=== PATIENT | female | born 1990 | race Caucasian/White ===

== ENCOUNTER → 2021-02-12 | Outpatient (REF) | payer OTHER | LOC: M SFHCWAGY 18:05 | PROVIDERS: ATTEND Advanced Practice Midwife | DX: Z34.83 Encounter for supervision of other normal pregnancy, third trimester (principal) ==

== ENCOUNTER 2021-03-03 21:10 | Inpatient (IN) | payer OTHER ==
[~2021-03-03] VITALS: Ht 165.1 cm; Wt 100.5 kg
[2021-03-03 21:32] VITALS: BP 136/85
[2021-03-03] MEDS ORDERED: LR 1,000 ML IV ONE (21:45)
[2021-03-03 22:14] LABS: HEMATOCRIT 42.6 % (36.0-47.0); HEMOGLOBIN 15.2 g/dl (12.0-15.5); MEAN CORPUSCULAR HEMOGLOBIN 30.9 pg (27.0-33.0); MEAN CORPUSCULAR HGB CONC 35.7 g/dl (32.0-36.5); MEAN CORPUSCULAR VOLUME 86.6 fl (80.0-96.0); PLATELET COUNT, AUTOMATED 239 10^3/uL (150-450); RED BLOOD COUNT 4.92 10^6/uL (4.00-5.40); WHITE BLOOD COUNT 12.4 10^3/uL (4.0-10.0)
[2021-03-03 22:43] VITALS: BP 143/87
[2021-03-03] MEDS ORDERED: ceFAZolin 2 GM/D5W 50 ML IV BAG (J0690 PER 500MG) As Ordered ONE (22:59)
[2021-03-03] MEDS ORDERED: ceFAZolin SOD 2 GM in IV 1 EA IV ONE (23:00)
[2021-03-03] MEDS ORDERED: BICITRA 30ML SOLN UDC PO ONE (23:00)
[2021-03-03] MEDS ORDERED: BICITRA 30ML SOLN UDC As Ordered ONE (23:03)
[2021-03-03] MEDS ORDERED: diphenhydrAMINE 50MG/ML VIAL (J1200) IV PRN (23:16)
[2021-03-03] MEDS ORDERED: NALOXONE INJ 0.4MG/1ML VIAL (J2310 PER 1MG) IV PRN ×2 (23:16)
[2021-03-03] MEDS ORDERED: METOCLOPRAMIDE INJ 10MG/2ML VIAL (J2765 PER 1) IV PRN (23:16)
[2021-03-03] MEDS ORDERED: NALBUPHINE HCL 10 MG/ML AMP (J2300) IV PRN (23:16)
[2021-03-03] MEDS ORDERED: ONDANSETRON 4MG/2ML VIAL IV PRN (23:16)
[2021-03-03] MEDS ORDERED: OXYTOCIN 30 UNITS IN 0.9% NaCl 500ML IV BAG (J2590) As Ordered ONE (23:47)
[2021-03-03] MEDS ORDERED: PHENYLephrine 500MCG 5ML (100MCG/ML) SYRINGE As Ordered ONE (23:57)
[2021-03-03] MEDS ORDERED: OXYTOCIN INJ 10 UNITS/ML VIAL (J2590) As Ordered ONE (23:57)
[2021-03-03] MEDS ORDERED: MORPHINE PRES-FREE INJ 10 MG/10 ML VIAL (J2274) As Ordered ONE (23:57)
[2021-03-03] MEDS ORDERED: ONDANSETRON 4MG/2ML VIAL As Ordered ONE (23:57)
[2021-03-03] MEDS ORDERED: METOCLOPRAMIDE INJ 10MG/2ML VIAL (J2765 PER 1) As Ordered ONE (23:57)
[2021-03-03] MEDS ORDERED: dexameTHASONE 4 MG/ML 1ML VIAL (J1100 PER 1MG) As Ordered ONE (23:57)
[2021-03-03] MEDS ORDERED: ACETAMINOPHEN 1000MG 100ML IV BTL (OFIRMEV) (J0131 PER 10MG) As Ordered ONE (23:58)
[2021-03-04] VITALS (20 sets, daily range): BP systolic 116–166; BP diastolic 61–98
[2021-03-04] MEDS ORDERED: diphenhydrAMINE 50MG/ML VIAL (J1200) IV PRN
[2021-03-04] MEDS ORDERED: KETOROLAC 30 MG/ML 1ML VIAL IV PRN
[2021-03-04] MEDS ORDERED: oxyCODONE 5MG TAB PO PRN
[2021-03-04] MEDS ORDERED: MEPERIDINE INJ 25 MG/ML VIAL (J2175) IV PRN
[2021-03-04] MEDS ORDERED: fentaNYL 100 MCG/2 ML INJECTION (J3010) IV PRN
[2021-03-04] MEDS ORDERED: HYDROMORPHONE HCL 0.5 MG/ 0.5 ML SYRINGE (J1170 PER 1) IV PRN
[2021-03-04] MEDS ORDERED: NALBUPHINE HCL 10 MG/ML AMP (J2300) IV PRN
[2021-03-04] MEDS ORDERED: ONDANSETRON 4MG/2ML VIAL IV PRN
[2021-03-04] MEDS ORDERED: OXYTOCIN DRIP 30 UNITS in IV 1 EA IV SCH ×2 (00:35→00:40)
[2021-03-04] MEDS ORDERED: SIMETHICONE 80MG CHEW TAB PO PRN (00:40)
[2021-03-04] MEDS ORDERED: RHOGAM 300 MCG (1500 IU) INJ (J2790) IM SCH (00:40)
[2021-03-04] MEDS ORDERED: MEASLES,MUMPS,RUBELLA VACCINE INJ (MMR-II) (90707) SC SCH (00:40)
[2021-03-04] MEDS ORDERED: MOM 30ML SUSPENSION UDC PO PRN (00:40)
[2021-03-04 01:00] LABS: CORD GAS ABE A -7.2; CORD GAS ABE V -6.6; CORD GAS HCO3 A 20.9 MEQ/L; CORD GAS O2 SAT A 45.5 %; CORD GAS O2 SAT V 50.6 %; CORD GAS PCO2 A 51.6 mmHg; CORD GAS PCO2 V 62.8 mmHg; CORD GAS PH A 7.226 UNITS; CORD GAS PH V 7.181 UNITS; CORD GAS PO2 A 23.9 mmHg; CORD GAS PO2 V 27.2 mmHg; CORD GAS SBC A 17.5 MEQ/L; CORD GAS SBC V 18.1 MEQ/L; CORD GAS TCO2 A 22.5 MEQ/L; CORD GAS TCO2 V 24.9 MEQ/L
[2021-03-04] MEDS: PERCOCET 5MG/325MG TAB PO PRN ×2 (03:17→15:13)
[2021-03-04] MEDS ORDERED: LR 300 ML IV ONE (04:35)
--- NOTE | 2021-03-04 08:35 | RO ---
OPERATIVE NOTE DATE OF OPERATION: 03/03/2021 Vida is a 30-year-old female, 2, para 0-0-1-0, who was admitted at 39 and 4/7 weeks gestation in active labor with a breech presentation. After counseling, a decision was made to proceed with delivery via primary section. PREOPERATIVE DIAGNOSIS: 1. Term in active labor. 2. Breech presentation. POSTOPERATIVE DIAGNOSIS: 1. Term in active labor. 2. Breech presentation. 3. Tight nuchal cord. PROCEDURE: Primary low transverse section via Pfannenstiel incision. Breech extraction. SURGEON: Charles Lopez DO THROUGH OPERATOR: ANESTHESIA: Spinal COMPLICATIONS: None. ESTIMATED BLOOD LOSS: 600 mL FINDINGS: A live female in double footling breech presentation with a tight nuchal cord. The nuchal cord had to be reduced for the head to be delivered. Normal appearing tube, ovaries and placenta. SPECIMEN SENT TO THE LAB: Placenta. DESCRIPTION OF PROCEDURE: After obtaining informed consent, the patient was taken to the operating room where a spinal anesthetic was found to be adequate. She was then draped and prepped in the usual sterile fashion in supine position. At this point, a Pfannenstiel incision was made. This was carried down to the fascia. The fascia was incised in a midline fashion and carried through laterally. The superior aspect of the fascia was then grasped with a Tasha clamp, tented off and dissected off the rectus muscles sharply. The inferior aspect was dissected off in a similar fashion. The rectus muscles were in midline fashion. The peritoneum was identified. The peritoneal cavity was entered bluntly. Superior and inferior dissection of the peritoneum was then done with good visualization of the bladder. At this point, a Mobius skin retractor was placed. A low transverse uterine incision was made. Double footling breech was found. The was delivered after the nuchal cord was clamped and cut via breech extraction. The was then handed to the awaiting warmer. Cord blood and cord gas were sent. The placenta was removed manually. The uterus was cleared of all clot and debris and the uterine incision was then repaired in two separate layers of 0 Vicryl suture. The pelvis was copiously irrigated with normal saline and suctioned out. Attention was turned to the peritoneum which was closed in a running fashion using 2-0 Vicryl. The fascia was closed in two separate segments of 0 Vicryl sutures and the skin was reapproximated in a subcuticular fashion using 3-0 Vicryl on a Harman. Steri-Strips were placed. The patient tolerated the procedure well. She was then transferred to recovery room in stable condition. [facility]
[2021-03-04] MEDS: PRENATAL VITAMINS CHEWABLE TABLET PO SCH (09:13)
[2021-03-04] MEDS: IBUPROFEN 800 MG TAB PO SCH ×2 (09:14→16:19)
--- NOTE | 2021-03-04 09:16 | HPE ---
HISTORY AND PHYSICAL DATE OF ADMISSION: 03/03/2021 HISTORY OF PRESENT ILLNESS: Vida is a 30-year-old female, 2, para 0-0-1-0, with an EDC of 03/13/2021, EGA 38 and 4/7 weeks gestation who presented to labor and delivery with complaints of contractions every 3-4 minutes. Upon evaluation in labor and delivery, she was found to be in active labor in breech presentation. She is 100% effaced with a mid-bulging bag approximately 8 cm dilated. Breech confirmed by bedside ultrasound. Her history reviewed. She was also found to be breech two weeks earlier during her visit. Her labs are unremarkable. Blood type is B positive, rubella immune, hepatitis negative, HIV negative, GC, Chlamydia negative. One hour sugar testing was within normal limits. Her GBS was negative. PAST MEDICAL HISTORY: Denies. PAST SURGICAL HISTORY: She had a D&C for molar in 2019 and she also has benign rib cage tumor removed. SOCIAL HISTORY: Denies any alcohol or drug use. REVIEW OF SYSTEMS: Unremarkable. MEDICATIONS: vitamin. ALLERGIES: No known drug allergies. PHYSICAL EXAMINATION: On admission, obese female in no acute distress. Abdomen: Soft, nontender, nondistended. Extremities: No clubbing, cyanosis or edema. Vaginal exam: Her cervix is 8 cm dilated, 100% effaced with bulging membrane with double footling breech presentation confirmed by ultrasound. heart rate tracing 140-150s, reactive. Contractions every 2-3 minutes. ASSESSMENT: 1. Intrauterine at 38 and 4/7 weeks gestation in active labor. 2. Breech presentation. PLAN: Admit to labor and delivery, routine labs sent. Given her active labor and breech presentation, a decision was made to proceed with emergent section. Informed consent obtained, OR notified. We will proceed with a section. [facility]
[2021-03-04] MEDS: DOCUSATE SODIUM 100MG CAPSULE PO SCH (20:01)
[2021-03-05] MEDS: IBUPROFEN 800 MG TAB PO SCH ×2 (00:22→08:06)
[2021-03-05 02:00] VITALS: BP 143/63
[2021-03-05 06:00] VITALS: BP 142/86
[2021-03-05 07:39] LABS: MEAN CORPUSCULAR HEMOGLOBIN 31.1 pg (27.0-33.0); MEAN CORPUSCULAR HGB CONC 34.7 g/dl (32.0-36.5); MEAN CORPUSCULAR VOLUME 89.6 fl (80.0-96.0); PLATELET COUNT, AUTOMATED 185 10^3/uL (150-450); RED BLOOD COUNT 4.02 10^6/uL (4.00-5.40); WHITE BLOOD COUNT 11.8 10^3/uL (4.0-10.0)
[2021-03-05 07:51] LABS: HEMOGLOBIN 12.5 g/dl (12.0-15.5)
[2021-03-05] MEDS: PRENATAL VITAMINS CHEWABLE TABLET PO SCH (08:06)
[2021-03-05] MEDS: DOCUSATE SODIUM 100MG CAPSULE PO SCH (08:07)
[2021-03-05] MEDS: PERCOCET 5MG/325MG TAB PO PRN (08:08)
[2021-03-05] MEDS ORDERED: PERCOCET PO (10:59)
[2021-03-05] MEDS ORDERED: COLA100C5 PO (10:59)
[2021-03-05] MEDS ORDERED: IBUP80TA PO (10:59)
--- NOTE | 2021-03-05 11:10 | DS.PDOC ---
Discharge Summary General Date of Admission Mar 03, 2021 at 22:55 Date of Discharge 03/05/21 Attending Physician: Charles Lopez DO Discharge Summary PROCEDURES PERFORMED DURING STAY: Primary section. ADMITTING DIAGNOSES: 1. Active labor. 2. Breech presentation DISCHARGE DIAGNOSES: 1. Day 2 postoperative. COMPLICATIONS/CHIEF COMPLAINT: Labor Check. HISTORY OF PRESENT ILLNESS: Vida is a 30-year-old female who is a who presented to labor and delivery in active labor and breech presentation at 38.4 weeks gestation. She had a section. She has been and meeting with the natural remedy consultant. She has been voiding, ambulating and eating a regular diet without any issues. DISCHARGE MEDICATIONS: Please see below. ALLERGIES: Please see below. PHYSICAL EXAMINATION ON DISCHARGE: VITAL SIGNS: Please see below. GENERAL: Patient is awake and alert. Sitting up in bed nursing . RESPIRATORY EXAMINATION: regular rate without use of accessory muscles. ABDOMINAL EXAMINATION: fundus at umbilicus. Incision is approximated with steri- strips present. No drainage or erythema noted. EXTREMITIES: 1+ plus pitting edema on feet bilaterally with generalized edema of legs. SKIN: warm and dry without any lesions or rashes. LABORATORY DATA: Please see below. ACTIVITY: As tolerated. Pelvic rest. No heavy lifting. DIET: regular DISCHARGE INSTRUCTIONS: 1. Discharged to home. Follow-up in the office in 2 weeks for incision check and 6-8 weeks for . 2. Reviewed pain management, pelvic rest, DVT precautions, hemorrhage signs, depression, mastitis, care of incision and signs of infection. DISCHARGE CONDITION: Stable. Vital Signs/I&Os Vital Signs Date Time Temp Pulse Resp B/P (MAP) Pulse Ox O2 Delivery O2 Flow Rate FiO2 03/05/21 08:38 18 03/05/21 08:08 Room Air 03/05/21 06:00 98.3 106 142/86 (104) 98 I&O- Last 24 Hours up to 6 AM 03/05/21 06:00 Output Total 1300 ml Balance -1300 ml Laboratory Data Labs 24H Laboratory Tests 2 03/05/21 06:33: Nucleated Red Blood Cells % (auto) 0.0 CBC/BMP Laboratory Tests 03/05/21 06:33 Discharge Medications Scheduled PRN Docusate Sodium (Colace) 100 Mg Capsule, 100 MG PO BIDP PRN for CONSTIPATION Ibuprofen (Ibuprofen) 800 Mg Tablet, 800 MG PO Q8HP PRN for PAIN LEVEL 1-6 Oxycodone/Acetaminophen (Oxycodone-Acetaminophen 5-325) 1 Each Tablet, 1 TAB PO Q6HP PRN for PAIN LEVEL 7-10 Allergies Coded Allergies: No Known Allergies (Unverified , 03/03/21) WINNIE TONEY CNM Mar 05, 2021 11:10
== END 2021-03-05 13:35 | disposition home or self-care (01) | DRG 788 ==
LOC: M LDO 21:10 → M LDI 22:55 → M OBS 03-04 01:27
PROVIDERS: ADMIT Obstetrics & Gynecology; ATTEND Obstetrics & Gynecology
PROC: 10D00Z1 Extraction of Products of Conception, Low, Open Approach (ICD-10-PCS; principal; 2021-03-03 23:02)
DX: O32.8XX0 Maternal care for other malpresentation of fetus, not applicable or unspecified (principal); Z3A.38 38 weeks gestation of pregnancy; Z37.0 Single live birth

== ENCOUNTER → 2021-06-28 | Outpatient (REF) | payer OTHER ==
[~2021-06-28] MED LIST: COLA100C5 PO; IBUP80TA PO; PERCOCET PO
== END ==
LOC: M SFHCWAGY 17:01
PROVIDERS: ATTEND Obstetrics & Gynecology
DX: Z01.419 Encounter for gynecological examination (general) (routine) without abnormal findings (principal)

== ENCOUNTER → 2022-08-05 | Outpatient (CLI) | payer OTHER ==
[2022-08-05 19:22] LABS: HEMATOCRIT 43.8 % (36.0-47.0); HEMOGLOBIN 15.2 g/dl (12.0-15.5); MEAN CORPUSCULAR HEMOGLOBIN 30.2 pg (27.0-33.0); MEAN CORPUSCULAR HGB CONC 34.7 g/dl (32.0-36.5); MEAN CORPUSCULAR VOLUME 86.9 fl (80.0-96.0); PLATELET COUNT, AUTOMATED 270 10^3/uL (150-450); RED BLOOD COUNT 5.04 10^6/uL (4.00-5.40); WHITE BLOOD COUNT 8.2 10^3/uL (4.0-10.0)
[2022-08-05 20:22] LABS: HIV 1&2 SCREEN ATELLICA NEGATIVE (NEGATIVE)
[2022-08-05 22:32] LABS: GC DNA AMPLIFICATION NEGATIVE (NEGATIVE)
== END ==
LOC: M PLALAB 15:12
PROVIDERS: ATTEND Advanced Practice Midwife
DX: Z36.9 Encounter for antenatal screening, unspecified (principal)

== ENCOUNTER 2023-03-06 19:05 | Inpatient (IN) | payer OTHER ==
[~2023-03-06] VITALS: Ht 165.1 cm; Wt 95.6 kg
[2023-03-06 19:19] VITALS: BP 143/67
[2023-03-06 20:40] LABS: HEMATOCRIT 41.2 % (36.0-47.0); HEMOGLOBIN 14.7 g/dl (12.0-15.5); MEAN CORPUSCULAR HEMOGLOBIN 31.4 pg (27.0-33.0); MEAN CORPUSCULAR HGB CONC 35.7 g/dl (32.0-36.5); PLATELET COUNT, AUTOMATED 208 10^3/uL (150-450); RED BLOOD COUNT 4.68 10^6/uL (4.00-5.40)
[2023-03-06] MEDS ORDERED: LACTATED RINGER'S 1000 ML IV STA (21:34)
[2023-03-06] MEDS ORDERED: METHYLERGONOVINE MALEATE 0.2MG/ML 1ML VIAL IM PRN (21:35)
[2023-03-06] MEDS ORDERED: OXYTOCIN DRIP 30 UNITS in IV 1 EA IV PRN (21:35)
[2023-03-06] MEDS ORDERED: CARBOPROST TROMETHAMINE 250 MCG/ML AMP IM PRN (21:35)
[2023-03-06] MEDS ORDERED: LIDOCAINE 1% MDV 20ML VIAL INFIL PRN (21:35)
[2023-03-06] MEDS ORDERED: OXYTOCIN DRIP 30 UNITS in IV 1 EA IV SCH (21:35)
[2023-03-06] MEDS ORDERED: TRANEXAMIC ACID INJection 1,000 MG in NS 100 ML IV PRN (21:35)
[2023-03-06 23:10] VITALS: BP 135/89
[2023-03-06 23:36] VITALS: BP 139/95
[2023-03-06] MEDS: LR 1,000 ML IV SCH (23:40)
[2023-03-07] VITALS (50 sets, daily range): BP systolic 79–189; BP diastolic 41–120; TEMP 98.1; O2SAT 97
[2023-03-07] MEDS ORDERED: diphenhydrAMINE 50MG/ML VIAL IV PRN (02:20)
[2023-03-07] MEDS ORDERED: EPIDURAL/PCA KEYS XX PRN (02:20)
[2023-03-07] MEDS ORDERED: FENTANYL/ROPIVACAINE/NACL BAG 100 ML EPIDURAL SCH (02:20)
[2023-03-07] MEDS ORDERED: NALOXONE INJ 0.4MG/1ML VIAL IV PRN (02:20)
[2023-03-07] MEDS ORDERED: LR 500 ML IV PRN (02:20)
[2023-03-07] MEDS ORDERED: ePHEDrine SULFATE 25 MG/5 ML(5MG/ML) SYRINGE IVP PRN (02:20)
[2023-03-07] MEDS ORDERED: ONDANSETRON 4MG 2ML VIAL IV PRN ×2 (02:20→14:45)
[2023-03-07] MEDS: LR 1,000 ML IV SCH ×2 (05:04→11:01)
[2023-03-07] MEDS ORDERED: ANUSOL HC CREAM 30GM TOP PRN (13:05)
[2023-03-07] MEDS ORDERED: ACETAMINOPHEN 500 MG TAB PO PRN (13:05)
[2023-03-07] MEDS ORDERED: DOCUSATE SODIUM 100MG CAPSULE PO PRN (13:05)
[2023-03-07] MEDS ORDERED: METHYLERGONOVINE MALEATE 0.2 MG TAB PO PRN (13:05)
[2023-03-07] MEDS ORDERED: IBUPROFEN 800 MG TAB PO PRN (13:05)
[2023-03-07] MEDS ORDERED: DIBUCAINE 1% OINTMENT 30GM TOP PRN (13:05)
[2023-03-07] MEDS ORDERED: ACETAMINOPHEN TAB 650MG DOSE (2X325MG) PO PRN (13:05)
[2023-03-07] MEDS ORDERED: RHOGAM 300MCG (1500IU) INJ IM SCH (13:05)
[2023-03-07] MEDS ORDERED: PRENTAB9 PO (14:55)
[2023-03-07] MEDS ORDERED: HOME MED LIST COMPLETE! XX SCH (14:55)
[2023-03-08 06:15] VITALS: BP 135/70; O2SAT 97
[2023-03-08] MEDS: PRENATAL VITAMINS CHEWABLE TABLET PO SCH (09:38)
[2023-03-08] MEDS: IBUPROFEN 600MG TAB PO PRN (14:58)
[2023-03-08 18:00] VITALS: BP 133/68; O2SAT 97
[2023-03-08] MEDS: INFLUENZA QUADRIVALENT PF VACCINE 0.5ML SYRINGE IM.IMMUN ONE (20:33)
[2023-03-08 22:15] VITALS: BP 136/76
[2023-03-09 05:27] VITALS: BP 140/88; O2SAT 98
[2023-03-09] MEDS: PRENATAL VITAMINS CHEWABLE TABLET PO SCH (08:29)
[2023-03-09] MEDS: INFLUENZA QUADRIVALENT PF VACCINE 0.5ML SYRINGE IM.IMMUN ONE (08:39)
[2023-03-09] MEDS: IBUPROFEN 600MG TAB PO PRN (08:45)
[2023-03-09] MEDS ORDERED: MEASLES,MUMPS,RUBELLA VACCINE INJ (MMR-II) SC.IMMUN ONE (09:00)
[2023-03-09] MEDS ORDERED: IBUP80TA PO (09:52)
[2023-03-09] MEDS ORDERED: ACET-683 PO (09:52)
== END 2023-03-09 13:40 | disposition home or self-care (01) | DRG 807 ==
LOC: M LDO 19:05 → M LDI 21:38 → M OBS 03-07 16:00
PROVIDERS: ADMIT Obstetrics & Gynecology; ATTEND Advanced Practice Midwife
PROC: 10E0XZZ Delivery of Products of Conception, External Approach (ICD-10-PCS; principal; 2023-03-07)
PROC: 0KQM0ZZ Repair Perineum Muscle, Open Approach (ICD-10-PCS; 2023-03-07)
DX: O34.211 Maternal care for low transverse scar from previous cesarean delivery (principal); Z37.0 Single live birth; Z3A.41 41 weeks gestation of pregnancy; O48.0 Post-term pregnancy; O70.0 First degree perineal laceration during delivery